=== PATIENT | male | born 1970 | race Caucasian/White ===

== ENCOUNTER 2024-01-07 09:23 | Day surgery (SDC) | payer OTHER ==
[~2024-01-07] VITALS: Ht 165.1 cm; Wt 90.7 kg
[2024-01-07] MEDS ORDERED: fentaNYL citrate 0.05 MG/ML VIAL ONE (11:05)
[2024-01-07] MEDS: fentaNYL citrate 0.05 MG/ML VIAL IVP ONE (11:11)
[2024-01-07] MEDS: LIDOCAINE 2% 100 MG/5 ML UJET TP ONE (11:16)
== END 2024-01-07 11:37 | disposition home or self-care (01) ==
LOC: MDS 09:23 → MMU 09:25 → MDS 11:37
PROVIDERS: ATTEND Internal Medicine Gastroenterology
DX: Z12.11 Encounter for screening for malignant neoplasm of colon (principal); K63.5 Polyp of colon; E11.9 Type 2 diabetes mellitus without complications; F17.210 Nicotine dependence, cigarettes, uncomplicated; Z79.899 Other long term (current) drug therapy
CPT/HCPCS: 45385; 82948; J3010